=== PATIENT | male | born 1975 | race Caucasian/White ===

== ENCOUNTER 2019-02-02 19:06 | Emergency (ER) | payer BC ==
[~2019-02-02] VITALS: Ht 172.7 cm; Wt 79.4 kg
[2019-02-02] MEDS ORDERED: MAG HYDROX/AL HYDROX/SIMETH 30 ML LIQUID UDC ONE (19:22)
[2019-02-02] MEDS ORDERED: LIDOCAINE VISCUS 2% 15 ML UDC ONE (19:22)
[2019-02-02] MEDS ORDERED: PANTOPRAZOLE SODIUM 40 MG TABLET.DR PO ONE ×2 (19:23→19:30)
[2019-02-02] MEDS ORDERED: LIDOCAINE VISCUS 2% 15 ML UDC MM ONE (19:30)
[2019-02-02] MEDS ORDERED: MAG HYDROX/AL HYDROX/SIMETH 30 ML LIQUID UDC PO ONE (19:30)
--- NOTE | 2019-02-02 19:53 | NUR ---
Pt states he feels a little better, but discomfort still there. Pt appears in no distress. Blood samples sent to lab. Pending chest xray. Pt's mother at bedside.
[2019-02-02 19:56] LABS: BASOPHILS % (AUTO) 0.1 % (0.0-2.0); EOSINOPHILS # (AUTO) 0.1 K/uL (0.0-0.7); EOSINOPHILS % (AUTO) 0.6 % (0.0-7.0); HEMATOCRIT 42.9 % (36.7-47.1); HEMOGLOBIN 14.6 g/dL (12.5-16.3); LYMPHOCYTES # (AUTO) 0.8 K/uL (20.0-40.0); LYMPHOCYTES % (AUTO) 5.8 % (20.5-51.5); MEAN CORPUSCULAR HEMOGLOBIN 29.3 uug (23.8-33.4); MEAN CORPUSCULAR HGB CONC 34 g/dL (32.5-36.3); MONOCYTES # (AUTO) 0.6 K/uL (2.0-10.0); MONOCYTES % (AUTO) 4.4 % (0.0-11.0); NEUTROPHILS # (AUTO) 11.8 K/uL (1.8-8.9); NEUTROPHILS % (AUTO) 89.1 % (38.5-71.5); PLATELET COUNT (AUTO) 281 K/uL (152-348); RED BLOOD CELL COUNT(AUTO) 4.99 MIL/uL (4.06-5.63); WHITE BLOOD COUNT (AUTO) 13.3 K/uL (3.6-10.2)
[2019-02-02] MEDS ORDERED: HYDROCODONE/APAP 5-325MG TABLET ONE (20:05)
[2019-02-02 20:06] LABS: CREATININE 0.9 mg/dL (0.6-1.3)
[2019-02-02] MEDS ORDERED: HYDROCODONE/APAP 5-325MG TABLET PO ONE (20:15)
--- NOTE | 2019-02-02 20:16 | NUR ---
CRITICAL LAB VALUE CALLED IN BY KENNETH: [phone] TROPONIN
[2019-02-02] MEDS ORDERED: NITROGLYCERIN 0.4 MG/TAB BOTTLE SL ONE ×2 (20:19→20:30)
[2019-02-02 20:22] LABS: BILIRUBIN,DIRECT 0.1 mg/dL (0.0-0.2); BILIRUBIN,TOTAL 0.5 mg/dL (0.2-1.0); TOTAL PROTEIN, SERUM 7.4 g/dL (6.4-8.2)
--- NOTE | 2019-02-02 20:27 | NUR ---
Dom hazel in EDM - 02/02/19 at 8 by [id number] [facility]
--- NOTE | 2019-02-02 20:28 | NUR ---
Called Ankita from [facility] for possible stemi transfer. Will faxe facesheet and EKG as requested.
[2019-02-02] MEDS ORDERED: ASPIRIN 81 MG TAB.CHEW ONE (20:29)
[2019-02-02] MEDS ORDERED: NITROGLYCERIN OINT 1 GM PACKET TP ONE ×2 (20:34→20:45)
[2019-02-02 20:37] VITALS: BP 141/91
[2019-02-02] MEDS ORDERED: ASPIRIN 81 MG TAB.CHEW PO ONE (20:45)
--- NOTE | 2019-02-02 20:51 | NUR ---
[facility] HERE TO TRANSPORT PT TO [facility]. ACCEPTING MD IS DR. HARRISON.
--- NOTE | 2019-02-02 21:01 | NUR ---
Patient Tranfers to [facility]. Physician: Dr. Magaña.
== END 2019-02-02 21:03 | disposition short-term general hospital (02) ==
LOC: ER 19:08
DX: I21.4 Non-ST elevation (NSTEMI) myocardial infarction (principal)
CPT/HCPCS: 36415; 70030-TC; 71045; 83690; 85025; 93005; A4663